=== PATIENT | male | born 1970 | race Hispanic/Latino ===

== ENCOUNTER 2016-10-22 17:47 | Observation (INO) | payer MEDICAID ==
[2016-10-22 17:47] VITALS: BMI 24.5
--- NOTE | 2016-10-22 18:57 | ED PDOC ---
HPI: Back Time Seen by Provider: 10/22/16 18:41 Chief Complaint (Nursing): Back Pain Chief Complaint (Provider): back pain History Per: Patient Additional Complaint(s): Patient presents to emergency department for evaluation of acute on chronic back pain. Patient states that he has had multiple surgeries to lower back and has had chronic pain for several years. He is currently non-domiciled and states that he has been out of the care of pain management for several months. Patient states he has been drinking alcohol and using heroin to help with his pain. He states his previous paint formulator "screwed him over" and now he can't find a new doctor. Patient denies any bowel or bladder dysfunction. He arrives via ambulance and uses a walking cane at baseline. Past Medical History Reviewed: Historical Data, Nursing Documentation, Vital Signs Vital Signs: Last Vital Signs Temp 98.4 F 10/22/16 18:22 Pulse 88 10/22/16 18:22 Resp 20 10/22/16 18:22 BP 145/81 10/22/16 18:22 Pulse Ox 98 10/22/16 18:22 - Medical History PMH: Anxiety, Back Problems, Depression, Hepatitis (Hep C), Chronic Pain (Back Pain) - Surgical History Surgical History: Back Surgery - Family History Family History: States: Unknown Family Hx - Living Arrangements Living Arrangements: Other (non-domiciled) - Social History Alcohol: > 2 Drinks/Day Drugs: Opiates (heroin) - Home Medications Home Medications: Ambulatory Orders Medication Instructions Recorded Enalapril Maleate [Enalapril 5 mg PO BID 02/07/16 Maleate] Escitalopram [Lexapro] 5 mg PO DAILY 02/07/16 Ibuprofen [Ibuprofen] 800 mg PO Q4 PRN 02/07/16 Levothyroxine [Levothyroxine] 25 mcg PO DAILY 02/07/16 Mv,Ca,Min/Iron Fum/FA/Lyco/Lut 1 tab PO DAILY 02/07/16 [Complete Multi Tablet] oxyCODONE [oxyCODONE Immediate 15 mg PO Q8 PRN 02/07/16 Release Tab] traZODone [Desyrel] 50 mg PO HS 02/07/16 - Allergies Allergies/Adverse Reactions: Allergies Allergy/AdvReac Type Severity Reaction Status Date / Time FISH Allergy Unknown ANGIOEDEMA Verified 10/22/16 18:21 ketorolac tromethamine Allergy SWELLING Verified 10/22/16 18:21 [From Toradol] morphine Allergy SWELLING Verified 10/22/16 18:21 Review of Systems ROS Statement: Except As Marked, All Systems Reviewed And Found Negative Musculoskeletal: Positive for: Back Pain (chronic) Psych: Positive for: Other (? etoh) Physical Exam - Reviewed Nursing Documentation Reviewed: Yes Vital Signs Reviewed: Yes - Physical Exam Appears: Positive for: Well, Non-toxic, No Acute Distress Eye Exam: Positive for: Normal appearance, EOMI, PERRL Cardiovascular/Chest: Positive for: Regular Rate, Rhythm Respiratory: Positive for: Normal Breath Sounds Extremity: Positive for: Normal ROM Neurologic/Psych: Positive for: Alert, Oriented - Laboratory Results Result Diagrams: 10/22/16 21:00 10/22/16 21:00 - ECG O2 Sat by Pulse Oximetry: 98 Pulse Ox Interpretation: Normal Medical Decision Making Medical Decision Making: Impression: chronic pain Patient was offered non-narcotic pain meds for his pain but he states the only thing that works for him is a a strong narcotic. I advised that only non- narcotic meds will be administered at this time. Patient then states that he does not want to be treated and wishes to leave. He got up off of stretcher and threw himself on the ground. While on the ground he started to scream and curse at ED staff. He was assisted back onto stretcher by security and was placed in 4 point restraints. 2 mg IM ativan given for acute agitation. Patient admitted to ED observation ED OBSERVATION Date of observation admission: 10/22/16 Time of observation admission: 19:57 - Observation admission statement Patient is being placed in observation because:: acute agitation, possible etoh - Goals of Observation Goals of observation are:: Monitor patient in ED - Progress Note Progress Note: 10/22/16 21:22 Patient is still very agitated, still cursing and yelling at staff, despite IM ativan. IM haldol 5 mg given. 10/22/16 22:36 Patient is now asleep, restraints were removed, he will continue to be monitored at bedside 10/22/16 23:35 Patient is asleep, arousable, vital signs stable Disposition - Clinical Impression Clinical Impression: Alcohol intoxication, Chronic back pain - Patient ED Disposition Is Patient to be Admitted: Transfer of Care - Disposition Disposition: Transfer of Care Disposition Time: 23:55 Condition: FAIR Patient Signed Over To: Cate Franklin Handoff Comments: Signed out pending sobriety and final disposition Results - Lab Results Lab Results: 10/22/16 10/22/16 21:00 21:00 WBC 4.4 L RBC 4.71 Hgb 16.2 Hct 48.1 MCV 102.3 H MCH 34.5 H MCHC 33.7 RDW 13.0 Plt Count 143 MPV 8.1 Neut % (Auto) 67.8 Lymph % (Auto) 26.6 [place] % (Auto) 4.0 Eos % (Auto) 0.6 Baso % (Auto) 1.0 Neut # 3.0 Lymph # 1.2 [place] # 0.2 Eos # 0.0 Baso # 0.0 Sodium 139 Potassium 3.6 Chloride 99 Carbon Dioxide 23 Anion Gap 21 H BUN 9 Creatinine 0.6 L Est GFR ( Amer) > 60 Est GFR (Non-Af Amer) > 60 Random Glucose 92 Calcium 9.5 Total Bilirubin 0.7 AST 117 H D ALT 77 H D Alkaline Phosphatase 85 Total Protein 8.1 Albumin 4.3 Globulin 3.8 Albumin/Globulin Ratio 1.2 Alcohol, Quantitative 297 H
[2016-10-22 21:35] LABS: EOS % 0.6 % (0.0-4.0); HEMATOCRIT 48.1 % (35.0-51.0); LYMPH # 1.2 K/uL (1.0-4.3); LYMPH % 26.6 % (20.0-40.0); MEAN CELL VOLUME 102.3 fl (80.0-94.0); MEAN CORPUSCULAR HEMOGLOBIN 34.5 pg (27.0-31.0); MEAN CORPUSCULAR HGB CONC 33.7 g/dL (33.0-37.0); MEAN PLATELET VOLUME 8.1 fl (7.2-11.7); MONO # 0.2 K/uL (0.0-0.8); NEUT % 67.8 % (50.0-75.0); NRBC % 0.1 % (0.0-0.0); WHITE BLOOD COUNT 4.4 K/uL (4.8-10.8)
[2016-10-22 21:44] LABS: ALB/GLOB RATIO 1.2 (1.0-2.1); ALCOHOL SERUM 297 mg/dl (0-10); ALKALINE PHOSPHATASE 85 U/L (38-126); ALT/SGPT 77 U/L (21-72); AST/SGOT 117 U/L (17-59); BILIRUBIN,TOTAL 0.7 mg/dl (0.2-1.3); BLOOD UREA NITROGEN 9 mg/dl (9-20); CALCIUM 9.5 mg/dL (8.4-10.2); CARBON DIOXIDE 23 mmol/L (22-30); CHLORIDE 99 mmol/L (98-107); GFR AFRICAN-AMERICAN > 60; GLUCOSE,RANDOM 92 mg/dL (75-110); SODIUM 139 mmol/l (132-148); TOTAL PROTEIN 8.1 G/DL (6.3-8.2)
[2016-10-22 21:51] LABS: POTASSIUM 3.6 MMOL/L (3.6-5.0)
[2016-10-23 03:34] VITALS: BP 156/87; PULSE 77; RESP 16; TEMP 98.2; O2SAT 100
--- NOTE | 2016-10-23 03:42 | ED PDOC ---
- Laboratory Results Result Diagrams: 10/22/16 21:00 10/22/16 21:00 - ECG O2 Sat by Pulse Oximetry: 100 - Progress ED Course And Treament: Case endorsed to service writer advisor from [employer] pending clinical sobriety 1:00 Patient sleeping; no acute distress 3:15 Patient awake, alert, oriented x3. Ambulating steady gait. Tolerated juice. Stable for discharge. Disposition - Clinical Impression Clinical Impression: Alcohol intoxication, Chronic back pain - POA Present On Arrival: None - Disposition Disposition: Routine/Home Disposition Time: 03:15 Condition: STABLE
== END 2016-10-23 03:20 | disposition home or self-care (01) ==
LOC: H.ER 17:47 → H.EROBSV 19:29
PROVIDERS: ADMIT Emergency Medicine; ATTEND Emergency Medicine
DX: F10.129 Alcohol abuse with intoxication, unspecified (principal); M54.9 Dorsalgia, unspecified; F41.9 Anxiety disorder, unspecified; G89.29 Other chronic pain

== ENCOUNTER 2016-12-14 21:41 | Emergency (ER) | payer MEDICAID ==
[2016-12-14 21:42] VITALS: BMI 24.5
[2016-12-14 21:49] VITALS: BP 137/79; PULSE 86; RESP 16; TEMP 98.9; O2SAT 97
--- NOTE | 2016-12-14 22:05 | ED PDOC ---
HPI: Psych/Substance Abuse Time Seen by Provider: 12/14/16 21:44 Chief Complaint (Nursing): Alcohol Ingestion Chief Complaint (Provider): ETOH History Per: Patient Additional Complaint(s): 45-year-old male, PMHx includes Anxiety, (chronic) Back Problems, Depression, Hepatitis (Hep C), and Hypothyroidism, is brought to the emergency department by EMS for evaluation of ETOH intoxication. Pt admits to drinking, is tearful and admits he has chronic back pain so he needs to drink. denies any suicidal or homicidal ideations Past Medical History Reviewed: Nursing Documentation, Vital Signs Vital Signs: Last Vital Signs Temp 98.9 F 12/14/16 21:47 Pulse 86 12/14/16 21:47 Resp 16 12/14/16 21:47 BP 137/79 12/14/16 21:47 Pulse Ox 97 12/14/16 21:47 - Medical History PMH: Anxiety, Back Problems, Depression, Hepatitis (Hep C), Hypothyroidism ( sYNTHROID), Chronic Pain (Back Pain) Denies: Diabetes, HIV, HTN, Chronic Kidney Disease, Seizures, Sexually Transmitted Disease - Surgical History Surgical History: Back Surgery - Family History Family History: States: Unknown Family Hx - Living Arrangements Living Arrangements: Other - Social History Alcohol: > 2 Drinks/Day - Immunization History Hx Tetanus Toxoid Vaccination: Yes Hx Influenza Vaccination: Yes Hx Pneumococcal Vaccination: Yes - Home Medications Home Medications: Ambulatory Orders Medication Instructions Recorded Enalapril Maleate [Enalapril 5 mg PO BID 02/07/16 Maleate] Escitalopram [Lexapro] 5 mg PO DAILY 02/07/16 Ibuprofen [Ibuprofen] 800 mg PO Q4 PRN 02/07/16 Levothyroxine [Levothyroxine] 25 mcg PO DAILY 02/07/16 Mv,Kg,Min/Iron/Folic Acid/Lut 1 tab PO DAILY 02/07/16 [Complete Multi Tablet] oxyCODONE [oxyCODONE Immediate 15 mg PO Q8 PRN 02/07/16 Release Tab] traZODone [Desyrel] 50 mg PO HS 02/07/16 - Allergies Allergies/Adverse Reactions: Allergies Allergy/AdvReac Type Severity Reaction Status Date / Time FISH Allergy Unknown ANGIOEDEMA Verified 10/22/16 18:21 ketorolac tromethamine Allergy SWELLING Verified 10/22/16 18:21 [From Toradol] morphine Allergy SWELLING Verified 10/22/16 18:21 Review of Systems ROS Statement: Except As Marked, All Systems Reviewed And Found Negative Physical Exam - Reviewed Nursing Documentation Reviewed: Yes Vital Signs Reviewed: Yes - Physical Exam Appears: Positive for: Well, Non-toxic, No Acute Distress Head Exam: Positive for: ATRAUMATIC, NORMAL INSPECTION, NORMOCEPHALIC Skin: Positive for: Normal Color, Warm, DRY Eye Exam: Positive for: EOMI, Normal appearance, PERRL ENT: Positive for: Normal ENT Inspection Neck: Positive for: Normal, Painless ROM Cardiovascular/Chest: Positive for: Regular Rate, Rhythm Respiratory: Positive for: CNT, Normal Breath Sounds Gastrointestinal/Abdominal: Positive for: Normal Exam, Bowel Sounds, Soft Back: Positive for: Normal Inspection Extremity: Positive for: Normal ROM Neurologic/Psych: Positive for: Alert, Oriented - Laboratory Results Result Diagrams: 12/14/16 22:45 12/14/16 22:45 - ECG O2 Sat by Pulse Oximetry: 97 Medical Decision Making Medical Decision Making: ETOH 286 Monitored in ED overnight, arousable to verbal stimuli Stable for discharge in am Disposition - Clinical Impression Clinical Impression: Alcohol abuse - Patient ED Disposition Is Patient to be Admitted: No - Disposition Disposition: Routine/Home Disposition Time: 05:31 Condition: STABLE Instructions: Alcohol Intoxication (ED) - POA Present On Arrival: None
[2016-12-14 23:33] LABS: BASO # 0.1 K/uL (0.0-0.2); BASO % 2.5 % (0.0-2.0); EOS # 0.1 K/uL (0.0-0.7); HEMATOCRIT 41.7 % (35.0-51.0); LYMPH # 1.3 K/uL (1.0-4.3); LYMPH % 28.7 % (20.0-40.0); MEAN CELL VOLUME 103.2 fl (80.0-94.0); MEAN CORPUSCULAR HGB CONC 33.9 g/dL (33.0-37.0); MEAN PLATELET VOLUME 7.4 fl (7.2-11.7); MONO # 0.3 K/uL (0.0-0.8); MONO % 5.9 % (0.0-10.0); NEUT # 2.7 K/uL (1.8-7.0); NEUT % 60.9 % (50.0-75.0); NRBC % 0.1 % (0.0-0.0); RED CELL DISTRIBUTION WIDTH 12.8 % (11.5-14.5); WHITE BLOOD COUNT 4.4 K/uL (4.8-10.8)
[2016-12-14 23:42] LABS: ALB/GLOB RATIO 1.3 (1.0-2.1); ALCOHOL SERUM 286 mg/dl (0-10); ALKALINE PHOSPHATASE 81 U/L (38-126); ALT/SGPT 50 U/L (21-72); AST/SGOT 60 U/L (17-59); BILIRUBIN,TOTAL 0.2 mg/dl (0.2-1.3); BLOOD UREA NITROGEN 12 mg/dl (9-20); CARBON DIOXIDE 24 mmol/L (22-30); CHLORIDE 108 mmol/L (98-107); GFR AFRICAN-AMERICAN > 60; GLUCOSE,RANDOM 97 mg/dL (75-110); SODIUM 147 mmol/l (132-148); TOTAL PROTEIN 7.1 G/DL (6.3-8.2)
[2016-12-14 23:44] LABS: POTASSIUM 3.1 MMOL/L (3.6-5.0)
== END 2016-12-15 06:30 | disposition home or self-care (01) ==
LOC: H.ER 21:41
DX: F10.129 Alcohol abuse with intoxication, unspecified (principal)

== ENCOUNTER 2017-01-15 19:12 | Observation (INO) | payer MEDICAID ==
[2017-01-15 19:12] VITALS: BMI 24.5
[2017-01-15 19:16] VITALS: BP 124/66; PULSE 93; RESP 16; TEMP 98.2; O2SAT 95
--- NOTE | 2017-01-15 20:40 | ED PDOC ---
HPI: Psych/Substance Abuse Time Seen by Provider: 01/15/17 19:47 Chief Complaint (Nursing): Substance Abuse Chief Complaint (Provider): Psychiatric eval ED Caveat: Intoxicated History Per: EMS History/Exam Limitations: no limitations Onset/Duration Of Symptoms: Mins (prior to arrival) Current Symptoms Are (Timing): Still Present Additional Complaint(s): Leonard Major is a 46 year old male with previous medical history of depression , opioid use, and chronic back pain who presents to the emergency department via EMS for a psychiatric evaluation [place] Patient was given 2 mg of nasal Narcan on site and successfully woke up. He admitted to drinking alcohol but denied any drug use. Of note, patient was discharged earlier this morning from [facility] detox center for substance abuse. Past Medical History Reviewed: Historical Data, Nursing Documentation, Vital Signs Vital Signs: Last Vital Signs Temp 98.2 F 01/15/17 19:13 Pulse 93 H 01/15/17 19:13 Resp 16 01/15/17 19:13 BP 124/66 01/15/17 19:13 Pulse Ox 95 01/15/17 19:13 - Medical History PMH: Anxiety, Back Problems, Depression, Fractures (vertebrae), Hepatitis (Hep C ), Hypothyroidism, Chronic Pain (Back Pain) Denies: Diabetes, HIV, HTN, Chronic Kidney Disease, Seizures, Sexually Transmitted Disease - Surgical History Surgical History: Back Surgery - Family History Family History: States: Unknown Family Hx - Immunization History Hx Tetanus Toxoid Vaccination: Yes Hx Influenza Vaccination: Yes Hx Pneumococcal Vaccination: Yes - Home Medications Home Medications: Ambulatory Orders Medication Instructions Recorded Enalapril Maleate [Enalapril 5 mg PO BID 02/07/16 Maleate] Escitalopram [Lexapro] 5 mg PO DAILY 02/07/16 Ibuprofen [Ibuprofen] 800 mg PO Q4 PRN 02/07/16 Levothyroxine [Levothyroxine] 25 mcg PO DAILY 02/07/16 Mv,Kg,Min/Iron/Folic Acid/Lut 1 tab PO DAILY 02/07/16 [Complete Multi Tablet] oxyCODONE [oxyCODONE Immediate 15 mg PO Q8 PRN 02/07/16 Release Tab] traZODone [Desyrel] 50 mg PO HS 02/07/16 - Allergies Allergies/Adverse Reactions: Allergies Allergy/AdvReac Type Severity Reaction Status Date / Time FISH Allergy Unknown ANGIOEDEMA Verified 10/22/16 18:21 ketorolac tromethamine Allergy SWELLING Verified 10/22/16 18:21 [From Toradol] morphine Allergy SWELLING Verified 10/22/16 18:21 Review of Systems Review Of Systems: ROS cannot be obtained secondary to pt's inabilty to answer questions. (alcohol intoxication) Psych: Negative for: Suicidal ideation (or homicidal ideation) Physical Exam - Reviewed Nursing Documentation Reviewed: Yes Vital Signs Reviewed: Yes - Physical Exam Appears: Positive for: Well, Non-toxic, No Acute Distress Head Exam: Positive for: ATRAUMATIC, NORMAL INSPECTION, NORMOCEPHALIC Skin: Positive for: Normal Color, Warm, DRY Eye Exam: Positive for: Normal appearance Neck: Positive for: Normal, Painless ROM Cardiovascular/Chest: Positive for: Regular Rate, Rhythm Respiratory: Positive for: CNT, Normal Breath Sounds Neurologic/Psych: Positive for: Alert (x3) - Laboratory Results Result Diagrams: 01/15/17 20:30 01/15/17 20:30 - ECG O2 Sat by Pulse Oximetry: 95 (RA) Pulse Ox Interpretation: Normal Medical Decision Making Medical Decision Making: Initial Impression: Psychiatric evaluation Initial Plan: * Acetaminophen * Alcohol serum * Labs * Drug screen, urine * Salicylate * Urine dipstick * Admit to hospital Time: 2214 --Patient walked out of ED before treatment could be completed. --Patient has stable gait, awake, and alert. Scribe Attestation: Documented by Evelyn Michaud, acting as a scribe for Drea Merchant MD. Provider Scribe Attestation: All medical record entries made by the Scribe were at my direction and personally dictated by me. I have reviewed the chart and agree that the record accurately reflects my personal performance of the history, physical exam, medical decision making, and the department course for this patient. I have also personally directed, reviewed, and agree with the discharge instructions and disposition.
[2017-01-15 20:47] LABS: BASO # 0.1 K/uL (0.0-0.2); BASO % 0.4 % (0.0-2.0); EOS % 0.1 % (0.0-4.0); HEMOGLOBIN 14.6 g/dL (12.0-18.0); LYMPH # 0.5 K/uL (1.0-4.3); LYMPH % 3.2 % (20.0-40.0); MEAN CELL VOLUME 104.6 fl (80.0-94.0); MEAN CORPUSCULAR HEMOGLOBIN 34.3 pg (27.0-31.0); MEAN CORPUSCULAR HGB CONC 32.8 g/dL (33.0-37.0); MEAN PLATELET VOLUME 8.1 fl (7.2-11.7); MONO # 0.6 K/uL (0.0-0.8); MONO % 3.5 % (0.0-10.0); NEUT # 14.9 K/uL (1.8-7.0); NEUT % 92.8 % (50.0-75.0); PLATELET COUNT 187 K/uL (130-400); RBC 4.27 Mil/uL (4.40-5.90); RED CELL DISTRIBUTION WIDTH 12.8 % (11.5-14.5); WHITE BLOOD COUNT 16.1 K/uL (4.8-10.8)
[2017-01-15 20:51] LABS: ALB/GLOB RATIO 1.6 (1.0-2.1); ALBUMIN 4.6 g/dL (3.5-5.0); ALT/SGPT 60 U/L (21-72); AST/SGOT 86 U/L (17-59); BLOOD UREA NITROGEN 20 mg/dl (9-20); CALCIUM 9.7 mg/dL (8.4-10.2); GFR AFRICAN-AMERICAN > 60; GFR NON-AFRICAN AMERICAN > 60
[2017-01-15 20:52] LABS: SALICYLATE < 1.0 mg/dl
[2017-01-15 20:54] LABS: ACETAMINOPHEN < 10.0 ug/ml (10.0-30.0)
[2017-01-15 22:27] LABS: BANDS 1 % (0-2); BASOPHIL 1 % (0-2); LYMPHOCYTE 4 % (20-50); MONOCYTE 3 % (0-10); NEUTROPHIL 91 % (42-75); TOTAL CELLS COUNTED 100
[2017-01-15 22:29] LABS: PLATELET ESTIMATE NORMAL (NORMAL)
== END 2017-01-15 22:25 | disposition left against medical advice (07) ==
LOC: H.ER 19:12 → H.EROBSV 19:55
PROVIDERS: ADMIT Emergency Medicine; ATTEND Emergency Medicine
DX: Z00.8 Encounter for other general examination (principal); E03.9 Hypothyroidism, unspecified; Z91.013 Allergy to seafood; Z88.5 Allergy status to narcotic agent; F41.9 Anxiety disorder, unspecified; F32.9 Major depressive disorder, single episode, unspecified; B19.20 Unspecified viral hepatitis C without hepatic coma; G89.29 Other chronic pain

== ENCOUNTER 2018-02-06 14:47 | Emergency (ER) | payer MEDICAID ==
[2018-02-06 14:48] VITALS: BMI 24.5
[2018-02-06 14:51] VITALS: BP 117/67; PULSE 86; TEMP 98.7; O2SAT 97
[2018-02-06] MEDS ORDERED: Oxycodone/Acetaminophen 5/325 mg Tab PO STA (15:30)
[2018-02-06] MEDS ORDERED: Oxycodone/Acetaminophen 5/325 mg Tab ONE (15:35)
--- NOTE | 2018-02-06 17:38 | ED PDOC ---
HPI: General Adult Time Seen by Provider: 02/06/18 15:06 Chief Complaint (Nursing): Lower Extremity Problem/Injury Chief Complaint (Provider): Right buttocks pain, radiating down the right leg History Per: Patient History/Exam Limitations: no limitations Onset/Duration Of Symptoms: Days Have you had recent travel within the past 21 days to any of the following countries: [place], [place], [place] or [place]?: No Current Symptoms Are (Timing): Still Present Additional Complaint(s): 47 yo male with history of back pain presents for evaluation of right buttocks pain radiating down the right leg since today. PT states that he began having severe pain this morning but has had similar in the past. No recent fall or trauma. Pt states he called 911 because he was unable to move due to pain. No numbness/tingling. Past Medical History Reviewed: Historical Data, Nursing Documentation, Vital Signs Vital Signs: Last Vital Signs Temp 98.7 F 02/06/18 14:50 Pulse 86 02/06/18 14:50 Resp BP 117/67 02/06/18 14:50 Pulse Ox 97 02/06/18 14:50 - Medical History PMH: Anxiety, Back Problems, Depression, Fractures (vertebrae), Hepatitis (Hep C ), Hypothyroidism, Chronic Pain (Back Pain) Denies: Diabetes, HIV, HTN, Chronic Kidney Disease, Seizures, Sexually Transmitted Disease - Surgical History Surgical History: Back Surgery - Family History Family History: States: Unknown Family Hx - Living Arrangements Living Arrangements: With Family - Social History Current smoker - smoking cessation education provided: No Alcohol: Occasional Drugs: Denies - Immunization History Hx Tetanus Toxoid Vaccination: Yes Hx Influenza Vaccination: Yes Hx Pneumococcal Vaccination: Yes - Home Medications Home Medications: Ambulatory Orders Medication Instructions Recorded Enalapril Maleate [Enalapril 5 mg PO BID 02/07/16 Maleate] Escitalopram [Lexapro] 5 mg PO DAILY 02/07/16 Ibuprofen [Ibuprofen] 800 mg PO Q4 PRN 02/07/16 Levothyroxine [Levothyroxine] 25 mcg PO DAILY 02/07/16 Mv,Kg,Min/Iron/Folic Acid/Lut 1 tab PO DAILY 02/07/16 [Complete Multi Tablet] oxyCODONE [oxyCODONE Immediate 15 mg PO Q8 PRN 02/07/16 Release Tab] traZODone [Desyrel] 50 mg PO HS 02/07/16 Lidocaine 5% [Lidoderm] 1 patch TOP DAILY #5 patch 02/06/18 - Allergies Allergies/Adverse Reactions: Allergies Allergy/AdvReac Type Severity Reaction Status Date / Time FISH Allergy Unknown ANGIOEDEMA Verified 10/22/16 18:21 ketorolac tromethamine Allergy SWELLING Verified 10/22/16 18:21 [From Toradol] morphine Allergy SWELLING Verified 10/22/16 18:21 Review of Systems ROS Statement: Except As Marked, All Systems Reviewed And Found Negative Constitutional: Negative for: Fever, Chills Musculoskeletal: Positive for: Back Pain, Leg Pain Physical Exam - Reviewed Nursing Documentation Reviewed: Yes Vital Signs Reviewed: Yes - Physical Exam Appears: Positive for: Well, Non-toxic, No Acute Distress Head Exam: Positive for: ATRAUMATIC, NORMAL INSPECTION, NORMOCEPHALIC Skin: Positive for: Normal Color, Warm, DRY Eye Exam: Positive for: Normal appearance ENT: Positive for: Normal ENT Inspection Neck: Positive for: Normal, Painless ROM Cardiovascular/Chest: Positive for: Regular Rate, Rhythm Respiratory: Positive for: Normal Breath Sounds. Negative for: Accessory Muscle Use, Respiratory Distress Back: Positive for: Normal Inspection Extremity: Positive for: Normal ROM Neurologic/Psych: Positive for: Alert, Oriented - ECG O2 Sat by Pulse Oximetry: 97 Medical Decision Making Medical Decision Making: Pt reports continues pain after percocet and flexeril. Pt seen by Dr. Mistry - Plan discussed. Tramadol and lidocaine patch ordered as per Dr. Mistry. Disposition - Clinical Impression Clinical Impression: Chronic back pain, Sciatica - Patient ED Disposition Is Patient to be Admitted: No Counseled Patient/Family Regarding: Diagnosis, Need For Followup - Disposition Disposition: Routine/Home Disposition Time: 17:39 Condition: GOOD Prescriptions: Lidocaine 5% [Lidoderm] 1 patch TOP DAILY #5 patch Instructions: Sciatica - POA Present On Arrival: None
[2018-02-06 17:40] VITALS: RESP 22
[2018-02-07] MEDS ORDERED: Lidocaine 5% Patch TD SCH (09:00)
== END 2018-02-06 17:40 | disposition home or self-care (01) ==
LOC: H.ER 14:47
DX: M54.30 Sciatica, unspecified side (principal); G89.29 Other chronic pain; B19.20 Unspecified viral hepatitis C without hepatic coma; E03.9 Hypothyroidism, unspecified; Z86.59 Personal history of other mental and behavioral disorders

== ENCOUNTER 2018-02-06 20:59 | Emergency (ER) | payer MEDICAID ==
[2018-02-06 20:59] VITALS: BMI 24.5
--- NOTE | 2018-02-06 21:53 | ED PDOC ---
Lower Extremity Pain/Injury Time Seen by Provider: 02/06/18 21:13 Chief Complaint (Nursing): Lower Extremity Problem/Injury Chief Complaint (Provider): Back pain History Per: Patient Additional Complaint(s): 47 yo male with history of back pain presents to D for second time tonight for evaluation of right buttocks pain radiating down the right leg since today. PT states that he began having severe pain this morning but has had similar in the past. No recent fall or trauma. Pt states he called 911 because he was unable to move due to pain. No numbness/tingling. no bowle or bladder dysfunction. Pt seen and evaluated in the ED earlier today for the same and was discharged after receiving percocet , flexeril, Tramadol and lidocaine patch. Pt was asleep in bed upon initial eval, responsive to verbal stimuli. pt admits to drinking after leaving ED. No drug use. Past Medical History Reviewed: Historical Data, Nursing Documentation, Vital Signs Vital Signs: Last Vital Signs Temp 98.2 F 02/06/18 21:04 Pulse 79 02/06/18 21:04 Resp 20 02/06/18 21:04 BP 133/86 02/06/18 21:04 Pulse Ox 96 02/06/18 21:04 - Medical History PMH: Anxiety, Back Problems, Depression, Fractures (vertebrae), Hepatitis (Hep C ), Hypothyroidism, Chronic Pain (Back Pain) Denies: Diabetes, HIV, HTN, Chronic Kidney Disease, Seizures, Sexually Transmitted Disease - Surgical History Surgical History: Back Surgery - Family History Family History: States: Unknown Family Hx - Living Arrangements Living Arrangements: Other - Social History Alcohol: > 2 Drinks/Day Drugs: Cannabis, Opiates - Immunization History Hx Tetanus Toxoid Vaccination: Yes Hx Influenza Vaccination: Yes Hx Pneumococcal Vaccination: Yes - Home Medications Home Medications: Ambulatory Orders Medication Instructions Recorded Enalapril Maleate [Enalapril 5 mg PO BID 02/07/16 Maleate] Escitalopram [Lexapro] 5 mg PO DAILY 02/07/16 Ibuprofen [Ibuprofen] 800 mg PO Q4 PRN 02/07/16 Levothyroxine [Levothyroxine] 25 mcg PO DAILY 02/07/16 Mv,Kg,Min/Iron/Folic Acid/Lut 1 tab PO DAILY 02/07/16 [Complete Multi Tablet] oxyCODONE [oxyCODONE Immediate 15 mg PO Q8 PRN 02/07/16 Release Tab] traZODone [Desyrel] 50 mg PO HS 02/07/16 Lidocaine 5% [Lidoderm] 1 patch TOP DAILY #5 patch 02/06/18 - Allergies Allergies/Adverse Reactions: Allergies Allergy/AdvReac Type Severity Reaction Status Date / Time FISH Allergy Unknown ANGIOEDEMA Verified 10/22/16 18:21 ketorolac tromethamine Allergy SWELLING Verified 10/22/16 18:21 [From Toradol] morphine Allergy SWELLING Verified 10/22/16 18:21 Review of Systems ROS Statement: Except As Marked, All Systems Reviewed And Found Negative Musculoskeletal: Positive for: Leg Pain Physical Exam - Reviewed Nursing Documentation Reviewed: Yes Vital Signs Reviewed: Yes - Physical Exam Appears: Positive for: Well, Non-toxic, No Acute Distress Head Exam: Positive for: ATRAUMATIC, NORMAL INSPECTION, NORMOCEPHALIC Skin: Positive for: Normal Color, Warm, DRY Eye Exam: Positive for: EOMI, Normal appearance, PERRL ENT: Positive for: Normal ENT Inspection Neck: Positive for: Normal, Painless ROM Cardiovascular/Chest: Positive for: Regular Rate, Rhythm Respiratory: Positive for: CNT, Normal Breath Sounds Gastrointestinal/Abdominal: Positive for: Normal Exam, Soft Back: Positive for: Normal Inspection Extremity: Positive for: Normal ROM Neurologic/Psych: Positive for: Alert, Oriented - ECG O2 Sat by Pulse Oximetry: 96 Medical Decision Making Medical Decision Making: Medicated with Motrin Po. Pt reports pain improved on re-eval and asking to sleep in ED 0400, Pt awake and asking for Librium due to feeling jittery. ETOH < 10 Pt doing well on re-eval. Stable for discharge in am Disposition - Clinical Impression Clinical Impression: EtOH dependence, Low back pain - Patient ED Disposition Is Patient to be Admitted: No - Disposition Disposition: Routine/Home Disposition Time: 05:12 Condition: STABLE Instructions: Low Back Pain in Adults Forms: [facility] (Croatian)
[2018-02-07 06:30] VITALS: RESP 16; O2SAT 98
[2018-02-07 07:47] VITALS: BP 160/100; PULSE 86; TEMP 98
== END 2018-02-07 07:19 | disposition home or self-care (01) ==
LOC: H.ER 20:59
DX: M54.5 Low back pain (principal); F10.20 Alcohol dependence, uncomplicated; B19.20 Unspecified viral hepatitis C without hepatic coma; E03.9 Hypothyroidism, unspecified; G89.29 Other chronic pain; Z86.59 Personal history of other mental and behavioral disorders

== ENCOUNTER 2018-08-04 17:56 | Emergency (ER) | payer SELFPAY ==
[2018-08-04 17:56] VITALS: BMI 24.5
--- NOTE | 2018-08-04 18:36 | ED PDOC ---
HPI: General Adult Time Seen by Provider: 08/04/18 18:27 Chief Complaint (Nursing): Medical Clearance Chief Complaint (Provider): palpitations History Per: Patient (48 y/o male here under police custody for warrant. Patient states he has h/o alcohol abuse with last drink 6 hours ago. States he feels anxious currently. Denies any vomiting/etc.) Past Medical History Reviewed: Historical Data, Nursing Documentation, Vital Signs Vital Signs: Last Vital Signs Temp 98.2 F 08/04/18 18:01 Pulse 72 08/04/18 18:01 Resp 16 08/04/18 18:01 BP 164/94 H 08/04/18 18:01 Pulse Ox 98 08/04/18 18:01 - Medical History PMH: Anxiety, Back Problems, Depression, Fractures (vertebrae), Hepatitis (Hep C), Hypothyroidism, Chronic Pain (Back Pain) Denies: Diabetes, HIV, HTN, Chronic Kidney Disease, Seizures, Sexually Transmitted Disease - Surgical History Surgical History: Back Surgery - Family History Family History: States: Unknown Family Hx - Immunization History Hx Tetanus Toxoid Vaccination: Yes Hx Influenza Vaccination: Yes Hx Pneumococcal Vaccination: Yes - Home Medications Home Medications: Ambulatory Orders Medication Instructions Recorded Enalapril Maleate 5 mg PO BID 02/07/16 Escitalopram [Lexapro] 5 mg PO DAILY 02/07/16 Ibuprofen 800 mg PO Q4 PRN 02/07/16 Levothyroxine 25 mcg PO DAILY 02/07/16 Mv,Kg,Min/Iron/Folic Acid/Lut 1 tab PO DAILY 02/07/16 [Complete Multi Tablet] oxyCODONE [oxyCODONE Immediate 15 mg PO Q8 PRN 02/07/16 Release Tab] traZODone [Desyrel] 50 mg PO HS 02/07/16 Lidocaine 5% [Lidoderm] 1 patch TOP DAILY #5 patch 02/06/18 chlordiazePOXIDE [Chlordiazepoxide 25 mg PO TID PRN #10 cap 08/04/18 HCl] - Allergies Allergies/Adverse Reactions: Allergies Allergy/AdvReac Type Severity Reaction Status Date / Time FISH Allergy Unknown ANGIOEDEMA Verified 08/04/18 18:01 ketorolac tromethamine Allergy SWELLING Verified 08/04/18 18:01 [From Toradol] morphine Allergy SWELLING Verified 08/04/18 18:01 Review of Systems ROS Statement: Except As Marked, All Systems Reviewed And Found Negative Physical Exam - Reviewed Nursing Documentation Reviewed: Yes Vital Signs Reviewed: Yes - Physical Exam Appears: Positive for: Well, Non-toxic, No Acute Distress Head Exam: Positive for: ATRAUMATIC, NORMAL INSPECTION, NORMOCEPHALIC Skin: Positive for: Normal Color, Warm, DRY Eye Exam: Positive for: EOMI, Normal appearance, PERRL ENT: Positive for: Normal ENT Inspection Neck: Positive for: Normal, Painless ROM Cardiovascular/Chest: Positive for: Regular Rate, Rhythm Respiratory: Positive for: CNT, Normal Breath Sounds Gastrointestinal/Abdominal: Positive for: Normal Exam, Soft Back: Positive for: Normal Inspection Extremity: Positive for: Normal ROM Neurologic/Psych: Positive for: Alert, Oriented - ECG ECG Rhythm: Positive for: Sinus Rhythm (nsr 66bpm no ectopy no acute chnages) O2 Sat by Pulse Oximetry: 98 - Progress ED Course And Treament: Librium 50mg x 1 dose Disposition - Clinical Impression Clinical Impression: Medical clearance for incarceration - Patient ED Disposition Is Patient to be Admitted: No - Disposition Disposition: Routine/Home Disposition Time: 18:37 Condition: FAIR Additional Instructions: PATIENT IS MEDICALLY AND PSYCHIATRICALLY CLEARED FOR INCARCERATION Prescriptions: chlordiazePOXIDE [Chlordiazepoxide HCl] 25 mg PO TID PRN #10 cap PRN Reason: Restlessness Instructions: Alcohol Use - When Is Drinking a Problem? Forms: [facility] ED School/Work Excuse
[2018-08-04 19:04] VITALS: BP 155/95; PULSE 78; RESP 20; TEMP 98.9; O2SAT 97
== END 2018-08-04 20:45 ==
LOC: H.ER 17:56
DX: B19.20 Unspecified viral hepatitis C without hepatic coma; E03.9 Hypothyroidism, unspecified; F32.9 Major depressive disorder, single episode, unspecified; F41.9 Anxiety disorder, unspecified; G89.29 Other chronic pain